=== PATIENT | female | born 1970 | race Caucasian/White ===

== ENCOUNTER 2018-03-10 06:26 | Day surgery (SDC) | payer OTHER ==
[~2018-03-10] VITALS: Ht 148.6 cm; Wt 82.5 kg
[~2018-03-10 06:26] MED LIST: ALBU8HFA IH; BECL8.7A7 BC; BUSP5TAB20 PO; CETI-290 PO; DULO60CA44 PO; FOLI-74 PO; GABA-533 PO; HYD50 PO; IBUP-2071 PO; LORA1TAB3 PO; MONT10TA21 PO; OMEP20 PO; TRAM50TA4 PO
[2018-03-10] MEDS ORDERED: SODIUM CHLORIDE 0.9% 1,000 ML IV ONE ×2 (06:30→06:35)
[2018-03-10] MEDS ORDERED: RANI150T7 PO (07:32)
[2018-03-10] MEDS ORDERED: PREG75 PO (07:32)
[2018-03-10] MEDS ORDERED: FOLI-74 PO (07:34)
[2018-03-10] MEDS ORDERED: IPRA4AER IH (07:34)
[2018-03-10] MEDS ORDERED: MIDAZOLAM HCL 2 MG/2 ML VIAL ONE (08:17)
[2018-03-10] MEDS ORDERED: FentaNYL CITRATE-PF 100 MCG/2 ML VIAL ONE (08:18)
[2018-03-10] MEDS ORDERED: MethylPREDNISolone SOD SUCC 125 MG/2 ML VIAL ONE (09:14)
[2018-03-10] MEDS ORDERED: MethylPREDNISolone SOD SUCC 125 MG/2 ML VIAL IVP ONE (09:15)
[2018-03-10] MEDS ORDERED: LIDOCAINE 2% 30 ML JELLY ONE (15:14)
[2018-03-10] MEDS ORDERED: LIDOCAINE 4% 50 ML SOLUTION ONE (15:14)
[2018-03-10] MEDS ORDERED: BENZOCAINE 20% 50 MCG/SPRAY 57 GM ONE (15:14)
[2018-03-10] MEDS ORDERED: OXYGEN THERAPY IH SCH (20:00)
== END 2018-03-10 10:30 | disposition home or self-care (01) ==
LOC: SURGERY 06:26
PROVIDERS: ATTEND Internal Medicine Critical Care Medicine
DX: J38.4 Edema of larynx (principal); B37.0 Candidal stomatitis; J84.111 Idiopathic interstitial pneumonia, not otherwise specified; F32.9 Major depressive disorder, single episode, unspecified; F41.8 Other specified anxiety disorders; J45.998 Other asthma; Z88.6 Allergy status to analgesic agent; Z90.49 Acquired absence of other specified parts of digestive tract; Z98.51 Tubal ligation status; Z87.01 Personal history of pneumonia (recurrent); Z88.5 Allergy status to narcotic agent; Z88.8 Allergy status to other drugs, medicaments and biological substances; Z98.890 Other specified postprocedural states; Z79.899 Other long term (current) drug therapy
CPT/HCPCS: 31623; 31624; 71045; 87015; 87070; 87205; 87206; 87220; 88108; 88312; 93005; J2250; J2930; J3010; J7030

== ENCOUNTER 2018-03-10 10:37 | Inpatient (IN) | payer OTHER ==
[~2018-03-10] VITALS: Ht 162.6 cm; Wt 82.1 kg
[~2018-03-10 10:37] MED LIST changes: +IPRA4AER IH; +PREG75 PO; +RANI150T7 PO
[2018-03-10 11:28] LABS: BASOPHILS % (AUTO) 0.7 % (0.0-2.0); EOSINOPHILS % (AUTO) 1.3 % (1.0-6.0); HEMATOCRIT 36.8 % (36-46); HEMOGLOBIN 11.9 g/dL (12.0-16.0); LYMPHOCYTES # (AUTO) 2.7 K/uL (1.0-4.8); LYMPHOCYTES % (AUTO) 23.7 % (22.0-44.0); MEAN CORPUSCULAR HGB CONC 32.4 G/dL (31.0-37.0); MEAN CORPUSCULAR VOLUME 89 fL (80-100); MONOCYTES # (AUTO) 0.3 K/uL (0.1-1.0); MONOCYTES % (AUTO) 2.7 % (2.0-9.0); NEUTROPHILS # (AUTO) 8.1 K/uL (1.8-7.7); NEUTROPHILS % (AUTO) 71.6 % (40.0-70.0); PLATELET COUNT (AUTO) 446 K/uL (150-450); RED BLOOD CELL COUNT(AUTO) 4.12 MIL/uL (4.00-5.20); RED CELL DISTRIBUTION WIDTH 15.7 % (11.5-14.5)
[2018-03-10] MEDS: NITROGLYCERIN 0.4 MG SUBLINGUAL TABLET #25 SL PRN ×3 (11:28→11:46)
[2018-03-10] MEDS ORDERED: MAGNESIUM HYDROXIDE SUSPENSION 30 ML UDCUP PO PRN (11:30)
[2018-03-10] MEDS ORDERED: MORPHINE SULFATE 2 MG/ML SYRINGE IVP PRN (11:30)
[2018-03-10] MEDS ORDERED: ASPIRIN 325 MG TABLET PO ONE (11:30)
[2018-03-10] MEDS ORDERED: ALBUTEROL SULFATE 2.5 MG/0.5 ML NEB SOLUTION NEB PRN (11:30)
[2018-03-10] MEDS: PANTOPRAZOLE SODIUM 40 MG DR TABLET PO SCH (11:45)
[2018-03-10] MEDS: ATORVASTATIN CALCIUM 20 MG TABLET PO SCH (11:48)
[2018-03-10 11:52] LABS: ANION GAP 8 mmol/L (8-16); CALCIUM, TOTAL 8.6 mg/dL (8.8-10.5); CARBON DIOXIDE 26 mmol/L (22-29); CHLORIDE 106 mmol/L (98-107); CREATININE 0.82 mg/dL (0.60-1.30); GLOMERULAR FILTR. RATE CALC > 60 mL/min (>60); GLUCOSE,RANDOM 84 mg/dL (70-110); POTASSIUM 4.2 mmol/L (3.5-5.1); SODIUM SERUM 140 mmol/L (136-145); UREA NITROGEN, BLOOD 8 mg/dL (7-18)
[2018-03-10 11:57] LABS: ALANINE AMINOTRANSFERASE 21 U/L (12-78); ALBUMIN 2.9 g/dL (3.4-5.0); ALKALINE PHOSPHATASE 75 U/L (46-116); ASPARTATE AMINOTRANSFERASE 15 U/L (15-37); BILIRUBIN,TOTAL 0.3 mg/dL (0.1-1.0); TOTAL PROTEIN, SERUM 7.2 g/dL (6.4-8.2)
[2018-03-10] MEDS ORDERED: MORPHINE SULFATE 2 MG/ML SYRINGE IVP ONE (12:00)
[2018-03-10] MEDS ORDERED: NITROGLYCERIN 2% (1 GM=INCH) PACKET TP ONE (12:00)
[2018-03-10] MEDS ORDERED: ONDANSETRON HCL 4 MG/2 ML VIAL IVP ONE (12:00)
[2018-03-10] MEDS ORDERED: MORPHINE SULFATE 4 MG/ML SYRINGE IVP ONE (12:00)
[2018-03-10] MEDS ORDERED: LORazepam 2 MG/ML VIAL IVP ONE (12:45)
[2018-03-10] MEDS: HYDROmorphone 2 MG/ML SYRINGE IVP PRN ×2 (13:06→20:30)
[2018-03-10 13:31] VITALS: BP 116/75
[2018-03-10 15:37] VITALS: BP 105/65
[2018-03-10] MEDS ORDERED: MINERAL OIL/PETROLATUM,WHITE PF 3.5 GM OPHTHALMIC OINTMENT OD PRN (16:45)
[2018-03-10 20:03] VITALS: BP 106/63
[2018-03-10] MEDS: NEOMYCIN/POLYMYXIN B/DEXAMETH 5 ML OPHTHALMIC SUSPENSION OD SCH (20:29)
[2018-03-10] MEDS: DOCUSATE SODIUM 100 MG CAPSULE PO SCH (20:29)
[2018-03-10 23:21] VITALS: BP 107/64
[2018-03-11] MEDS: HYDROmorphone 2 MG/ML SYRINGE IVP PRN (02:30)
[2018-03-11 04:39] VITALS: BP 106/66
[2018-03-11 08:03] VITALS: BP 120/75
[2018-03-11] MEDS: NEOMYCIN/POLYMYXIN B/DEXAMETH 5 ML OPHTHALMIC SUSPENSION OD SCH (08:36)
[2018-03-11] MEDS: PANTOPRAZOLE SODIUM 40 MG DR TABLET PO SCH (08:36)
[2018-03-11] MEDS: DOCUSATE SODIUM 100 MG CAPSULE PO SCH (08:37)
[2018-03-11] MEDS: ATORVASTATIN CALCIUM 20 MG TABLET PO SCH (08:37)
[2018-03-11] MEDS ORDERED: ACETAMINOPHEN 325 MG TABLET PO ONE (09:00)
[2018-03-11] MEDS ORDERED: ASPIRIN 325 MG TABLET PO SCH (09:00)
[2018-03-11 09:23] LABS: BASOPHILS % (AUTO) 0.2 % (0.0-2.0); EOSINOPHILS % (AUTO) 0.3 % (1.0-6.0); HEMATOCRIT 37.3 % (36-46); HEMOGLOBIN 12.4 g/dL (12.0-16.0); LYMPHOCYTES # (AUTO) 5.2 K/uL (1.0-4.8); LYMPHOCYTES % (AUTO) 34.5 % (22.0-44.0); MEAN CORPUSCULAR HEMOGLOBIN 29.1 pg (26.0-34.0); MEAN CORPUSCULAR HGB CONC 33.3 G/dL (31.0-37.0); MEAN CORPUSCULAR VOLUME 88 fL (80-100); MONOCYTES # (AUTO) 0.4 K/uL (0.1-1.0); MONOCYTES % (AUTO) 2.6 % (2.0-9.0); NEUTROPHILS # (AUTO) 9.4 K/uL (1.8-7.7); NEUTROPHILS % (AUTO) 62.4 % (40.0-70.0); PLATELET COUNT (AUTO) 433 K/uL (150-450); RED BLOOD CELL COUNT(AUTO) 4.25 MIL/uL (4.00-5.20); RED CELL DISTRIBUTION WIDTH 15.6 % (11.5-14.5)
[2018-03-11 11:25] LABS: APPEARANCE,URINE CLEAR (CLEAR); BILIRUBIN,URINE NEGATIVE (NEGATIVE); GLUCOSE, URINE (UA) NEGATIVE (NEGATIVE); KETONES,URINE NEGATIVE (NEGATIVE); LEUKOCYTE ESTERASE ,URINE NEGATIVE (NEGATIVE); NITRATE,URINE NEGATIVE (NEGATIVE); OCCULT BLOOD,URINE NEGATIVE (NEGATIVE); PH,URINE 6.5 (5.0-8.0); PROTEIN,URINE NEGATIVE (NEGATIVE); UROBILINOGEN,URINE 0.2 mg/dL (<=1.0)
[2018-03-11 11:28] VITALS: BP 97/55
[2018-03-13 15:19] LABS: GLUCOMETER DEV NAME(LOC) 5N 2S; GLUCOSE,POINT OF CARE 98 MG/DL (70-110)
== END 2018-03-11 13:40 | disposition home or self-care (01) | DRG 755 ==
LOC: EMS 10:37 → 5S 11:39 → 5N 12:50
PROVIDERS: ADMIT Internal Medicine; ATTEND Internal Medicine
DX: F45.9 Somatoform disorder, unspecified (principal); E66.9 Obesity, unspecified; R07.89 Other chest pain; F32.9 Major depressive disorder, single episode, unspecified; J45.909 Unspecified asthma, uncomplicated; F45.41 Pain disorder exclusively related to psychological factors; F41.9 Anxiety disorder, unspecified; Z82.49 Family history of ischemic heart disease and other diseases of the circulatory system; Z87.01 Personal history of pneumonia (recurrent); Z88.8 Allergy status to other drugs, medicaments and biological substances; Z79.899 Other long term (current) drug therapy; Z68.31 Body mass index [BMI] 31.0-31.9, adult
CPT/HCPCS: 93005; 93306; 99291; J1170; J2270; J2405

== ENCOUNTER 2024-07-16 07:13 | Day surgery (SDC) | payer OTHER ==
[~2024-07-16] VITALS: Ht 144.8 cm; Wt 87.7 kg
[~2024-07-16 07:13] MED LIST changes: +ALBU18HF12 IH; -ALBU8HFA IH; -BECL8.7A7 BC; -CETI-290 PO; +DULO-113 PO; -DULO60CA44 PO; -GABA-533 PO; -HYD50 PO; -IBUP-2071 PO; +LORA-1000 PO; -LORA1TAB3 PO; +MONT-35 PO; -MONT10TA21 PO; -PREG75 PO; -RANI150T7 PO; +SODIUM CHLORIDE 0.9% 1,000 ML ONE; -TRAM50TA4 PO
[2024-07-16] MEDS ORDERED: LEVALBUTEROL 1.25 MG/0.5 ML NEB SOLUTION NEB ONE (07:14)
[2024-07-16] MEDS ORDERED: BENZOCAINE 20% 50 MCG/SPRAY 57 GM TP ONE ×2 (07:14)
[2024-07-16] MEDS ORDERED: LIDOCAINE 2% 11 ML JELLY TP ONE (07:14)
[2024-07-16] MEDS ORDERED: LIDOCAINE 4% 50 ML SOLUTION TP ONE ×2 (07:14)
[2024-07-16] MEDS ORDERED: FentaNYL CITRATE PF 100 MCG/2 ML VIAL ONE (09:14)
[2024-07-16] MEDS ORDERED: MIDAZOLAM HCL 2 MG/2 ML VIAL ONE (09:14)
[2024-07-16 09:17] VITALS: PULSE 90; RESP 19; O2SAT 98
[2024-07-16] MEDS ORDERED: MethylPREDNISolone SOD SUCC 125 MG/2 ML VIAL ONE (10:16)
[2024-07-16] MEDS: MethylPREDNISolone SOD SUCC 125 MG/2 ML VIAL IVP ONE (10:18)
[2024-07-16] MEDS: SODIUM CHLORIDE 0.9% 1,000 ML IV ONE (10:30)
== END 2024-07-16 12:10 | disposition home or self-care (01) ==
LOC: SURGERY 07:13
PROVIDERS: ATTEND Internal Medicine Critical Care Medicine
DX: R05.3 Chronic cough (principal); J38.4 Edema of larynx; B37.0 Candidal stomatitis; J45.909 Unspecified asthma, uncomplicated; Z90.710 Acquired absence of both cervix and uterus; E11.9 Type 2 diabetes mellitus without complications
CPT/HCPCS: 31623; 87206; 87101; 87220; 87070; 31624; 94640; 71045; 87015; J3010; J2250; J2919; J7030; 88108; Z7610